=== PATIENT | female | born 1930 | race Caucasian/White ===

== ENCOUNTER 2016-09-07 11:47 | Emergency (ER) | payer MEDICARE, OTHER ==
[~2016-09-07] VITALS: Ht 162.6 cm; Wt 70.0 kg
[~2016-09-07 11:47] MED LIST: ADAL30TA5 PO; ADVA100A INH; ASCO500C PO; ASPI325T PO; CALC1TAB87 PO; GLUC500C5 PO; LATA.005%O LEFT EYE; LISI-515 PO; MIRA0.5T PO; MULT-65 PO; PRED20 PO; PRESCAP5 PO; VENTAER INH; VITA100064 PO; VITACAP7 PO; ZITH250T PO; ZOCO20TA PO
[2016-09-07 11:52] VITALS: BP 125/62; PULSE 97; RESP 18; TEMP 98.3; O2SAT 96
[2016-09-07] MEDS ORDERED: ALBUAER3 INH (12:16)
[2016-09-07] MEDS ORDERED: PRESCAP5 PO (12:16)
[2016-09-07] MEDS ORDERED: ADVA500A INH (12:16)
[2016-09-07] MEDS ORDERED: MUSINEX (12:16)
[2016-09-07 12:20] LABS: BLOOD, URINE NEG (NEG); GLUCOSE,URINE NEG (NEG); KETONE, URINE TRACE mg/dL (NEG); NITRITE,URINE NEG (NEG); PH, URINE 5.5 (5.0-8.5)
[2016-09-07 12:21] LABS: METHOD OF COLLECTION CLEAN CATCH; URINE COLOR YELLOW (YELLW/STRAW)
[2016-09-07 12:25] LABS: BACTERIA, URINE OCC /hpf; COMMENT (UR) CULTURE INDICATED; CULTURE IF INDICATED CULTURE INDICATED; RBC, URINE 0-3 /hpf (0-3); SQUAMOUS EPITHELIAL CELL URINE 0-5 /hpf (0-5)
[2016-09-07 12:29] LABS: AUTOMATED NEUTROPHIL # 8.2 TH/MM3 (1.8-7.7); BASOPHIL # 0.1 TH/MM3 (0-0.2); BASOPHIL % 1.2 % (0.0-2.0); EOSINOPHIL # 0.1 TH/MM3 (0-0.4); EOSINOPHIL % 1.2 % (0.0-4.0); HEMATOCRIT 36.4 % (35.0-46.0); LYMPH % 22.3 % (9.0-44.0); LYMPHOCYTE # 2.7 TH/MM3 (1.0-4.8); MEAN CELL VOLUME 93.8 FL (80.0-100.0); MEAN CORPUSCULAR HEMOGLOBIN 31.3 PG (27.0-34.0); MEAN CORPUSCULAR HGB CONC 33.4 % (32.0-36.0); MONO % 7.1 % (0.0-8.0); NEUT % 68.2 % (16.0-70.0); PLATELET COUNT 231 TH/MM3 (150-450); RED BLOOD COUNT 3.88 MIL/MM3 (4.00-5.30); RED CELL DISTRIBUTION WIDTH 13.4 % (11.6-17.2); WHITE BLOOD COUNT 11.9 TH/MM3 (4.0-11.0)
[2016-09-07 12:37] LABS: CHLORIDE 104 MEQ/L (98-107); POTASSIUM 3.5 MEQ/L (3.5-5.1); SODIUM (NA) 142 MEQ/L (136-145)
[2016-09-07 12:41] LABS: ANION GAP 13 MEQ/L (5-15); BICARBONATE 24.7 MEQ/L (21.0-32.0); BLOOD UREA NITROGEN 26 MG/DL (7-18)
[2016-09-07 12:44] LABS: ALT (GPT) 18 U/L (10-53); AST (GOT) 15 U/L (15-37); GLOMERULAR FILTRATION RATE 36 ML/MIN (>89)
[2016-09-07 12:45] LABS: TOTAL BILIRUBIN ADULT 0.8 MG/DL (0.2-1.0)
[2016-09-07] MEDS ORDERED: SODIUM CHLOR 0.9% 1000 ML INJ 1,000 ML IV SCH (12:45)
[2016-09-07 12:47] LABS: ALKALINE PHOSPHATASE 87 U/L (45-117)
[2016-09-07 12:48] LABS: HEMO FLAGS DIFF FINAL
[2016-09-07] MEDS ORDERED: IODIXANOL 320 MG/ML 10 ML VIAL (for Rad CT) IV ONE (13:07)
[2016-09-07 13:25] VITALS: BP 111/44; PULSE 90; RESP 16; O2SAT 96
--- NOTE | 2016-09-07 13:44 | RADHPO ---
EXAM DATE/TIME: 09/07/2016 13:01 [place] COMPARISON: No previous studies available for comparison. INDICATIONS : Right lower abdomen pain for three days. IV CONTRAST: 47 cc Visipaque (iodixanol) IV ORAL CONTRAST: No oral contrast ingested. RADIATION DOSE: 10.63 CTDIvol (mGy) MEDICAL HISTORY : Hypertension. SURGICAL HISTORY : Appendectomy. Cholecystectomy. ENCOUNTER: Initial ACUITY: 3 days PAIN SCALE: 9/10 LOCATION: Right lower quadrant TECHNIQUE: Volumetric scanning of the abdomen and pelvis was performed. Using automated exposure control and ad justment of the mA and/or kV according to patient size, radiation dose was kept as low as reasonably achievable to obtain optimal diagnostic quality images. FINDINGS: The lung bases are clear. Liver is free of focal defects. Spleen, pancreas, adrenal glands and kidn eys are unremarkable. There is marked bowel wall thickening in the ascending colon. There are no real inflammatory changes evident. Considerations include both a neoplasm and early diverticulitis. Neoplasm is the more lik mireya diagnosis. Pelvic contents are unremarkable. There is no free air. CONCLUSION: Abnormal ascending colon focally suspicious for a neoplastic process. Inflammatory process is though t to be less likely. Karl Lomas MD FACR on September 07, 2016 at 13:37 Board Certified Radiologist. This report was verified electronically.
--- NOTE | 2016-09-07 13:54 | PD ---
HPI Chief Complaint: Abdominal Pain Time Seen by Provider: 12:27 Travel History International Travel<30 days: No Contact w/Intl Traveler<30days: No Traveled to known affect area: No History of Present Illness HPI This 86-year-old female is complaining of right-sided abdominal pain. She says that last she started vomiting. She started having some right-sided abdominal pain at that time. The pain is been fairly consistent though the last 3 days. He has a history of cholecystectomy and appendectomy. She says that on July 01 she went for routine colonoscopy. He had trouble bypass scar tissue and then she apparently started coughing and the procedure had to be terminated. She does not recall having pain like this before. 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 ) Glaucoma: Yes Hypertension: Yes Neurologic: Yes (RLS) Tetanus Vaccination: Unknown ?: Not Menopausal: Yes Past Surgical History Appendectomy: Yes Cholecystectomy: Yes Tonsillectomy: Yes Other Surgery: Yes (Meniscus repair) Social History Alcohol Use: Yes (Occ.) Tobacco Use: No Substance Use: No Allergies-Medications (Allergen,Severity, Reaction): Coded Allergies: Apple (Verified Allergy, Severe, Hives, 09/07/16) RAW ONLY/CAN EAT COOKED Latex (Verified Allergy, Severe, Hives, 09/07/16) Penicillin (Verified Allergy, Severe, Hives, 09/07/16) Reported Meds & Prescriptions Reported Meds & Active Scripts Active Reported [Musinex] DAILY Proair Hfa 8.5 GM Inh (Albuterol Sulfate) 90 Mcg/Act Aer 1 Puff INH Q4H PRN 108 mcg/actuation Advair Diskus Inh (Fluticasone-Salmeterol Inh) 500-50 Mcg/Blist Aer 1 Puff INH BID Rinse mouth after use. Preservision Areds 2 (Multiple Vitamins W/ Minerals) 1 Cap 1 Cap PO DAILY Vitamin C (Ascorbic Acid) 500 Mg Cap 500 Mg PO DAILY B Complex (B-Complex Vitamins) 1 Cap 1 Cap PO DAILY Glucosamine (Glucosamine Sulfate) 500 Mg Cap 500 Mg PO BID Multi-Vitamin Daily (Multiple Vitamin) 1 Tab Tab 1 Tab PO DAILY Calcium 600 with Vitamin D (Calcium Carbonate-Cholecalciferol) 600-400 mg-Unit Tab 1 Tab PO DAILY Xalatan Opth Drops (Latanoprost) 0.005% Drops 1 Drop LEFT EYE HS Aspirin 325 Mg Tab 325 Mg PO DAILY Mirapex (Pramipexole Dihydrochloride) 0.5 Mg Tab 0.5 Mg PO DAILY Zocor (Simvastatin) 20 Mg Tab 20 Mg PO DAILY Lisinopril 20 Mg Tab 20 Mg PO DAILY Adalat CC (Nifedipine) 30 Mg Tab 30 Mg PO DAILY Review of Systems General / Constitutional: No: Fever, Chills Eyes: No: Diploplia, Blurred Vision HENT: No: Headaches, Vertigo Cardiovascular: No: Chest Pain or Discomfort, Palpitations Respiratory: No: Cough Gastrointestinal: Positive: Abdominal Pain, No: Vomiting Genitourinary: No: Urgency, Frequency Musculoskeletal: No: Myalgias, Arthralgias Hematologic/Lymphatic: No: Easy Bruising Physical Exam Narrative GENERAL: Well-developed female SKIN: Warm and dry. HEAD: Atraumatic. Normocephalic. EYES: Pupils equal and round. No scleral icterus. No injection or drainage. ENT: No nasal bleeding or discharge. Mucous membranes pink and moist. NECK: Trachea midline. No JVD. CARDIOVASCULAR: Regular rate and rhythm. No murmur appreciated. RESPIRATORY: No accessory muscle use. Clear to auscultation. Breath sounds equal bilaterally. GASTROINTESTINAL: Abdomen soft, there is an appendectomy and a cholecystectomy scar. I did pain is the right midabdomen that there is no guarding or rigidity. Bowel sounds are present MUSCULOSKELETAL: No obvious deformities. No clubbing. No cyanosis. No edema. NEUROLOGICAL: Awake and alert. No obvious cranial nerve deficits. Motor grossly within normal limits. Normal speech. PSYCHIATRIC: Appropriate mood and affect; insight and judgment normal. Data Data Last Documented VS Vital Signs Date Time Temp Pulse Resp B/P Pulse Ox O2 Delivery O2 Flow Rate FiO2 09/07/16 13:25 90 16 111/44 96 Room Air 09/07/16 11:52 98.3 Orders Urinalysis - C+S If Indicated (09/07/16 11:48) Complete Blood Count With Diff (09/07/16 12:21) Comprehensive Metabolic Panel (09/07/16 12:21) Lipase (09/07/16 12:21) Urine Culture (09/07/16 12:00) Ct Abd/Pel W Iv Contrast(Rout) (09/07/16 12:32) Sodium Chlor 0.9% 1000 Ml Inj (Ns 1000 M (09/07/16 12:45) Iodixanol 320 Inj (Rad Ct) (Visipaque 32 (09/07/16 13:07) Labs Laboratory Tests Test 09/07/16 09/07/16 12:00 12:20 Urine Collection Type CLEAN CATCH Urine Color YELLOW Urine Turbidity CLEAR Urine pH 5.5 Urine Specific [place] 1.025 Urine Protein NEG mg/dL Urine Glucose (UA) NEG mg/dL Urine Ketones TRACE mg/dL Urine Occult Blood NEG Urine Nitrite NEG Urine Bilirubin NEG Urine Leukocyte Esterase SMALL Urine RBC 0-3 /hpf Urine WBC 9-14 /hpf Urine Squamous Epithelial 0-5 /hpf Cells Urine Bacteria OCC /hpf Microscopic Urinalysis Comment CULTURE INDICATED White Blood Count 11.9 TH/MM3 Red Blood Count 3.88 MIL/MM3 Hemoglobin 12.1 GM/DL Hematocrit 36.4 % Mean Corpuscular Volume 93.8 FL Mean Corpuscular Hemoglobin 31.3 PG Mean Corpuscular Hemoglobin 33.4 % Concent Red Cell Distribution Width 13.4 % Platelet Count 231 TH/MM3 Mean Platelet Volume 7.7 FL Neutrophils (%) (Auto) 68.2 % Lymphocytes (%) (Auto) 22.3 % Monocytes (%) (Auto) 7.1 % Eosinophils (%) (Auto) 1.2 % Basophils (%) (Auto) 1.2 % Neutrophils # (Auto) 8.2 TH/MM3 Lymphocytes # (Auto) 2.7 TH/MM3 Monocytes # (Auto) 0.8 TH/MM3 Eosinophils # (Auto) 0.1 TH/MM3 Basophils # (Auto) 0.1 TH/MM3 CBC Comment DIFF FINAL Differential Comment Sodium Level 142 MEQ/L Potassium Level 3.5 MEQ/L Chloride Level 104 MEQ/L Carbon Dioxide Level 24.7 MEQ/L Anion Gap 13 MEQ/L Blood Urea Nitrogen 26 MG/DL Creatinine 1.40 MG/DL Estimat Glomerular Filtration 36 ML/MIN Rate Random Glucose 156 MG/DL Calcium Level 9.4 MG/DL Total Bilirubin 0.8 MG/DL Aspartate Amino Transf 15 U/L (AST/SGOT) Alanine Aminotransferase 18 U/L (ALT/SGPT) Alkaline Phosphatase 87 U/L Total Protein 7.6 GM/DL Albumin 3.4 GM/DL Lipase 160 U/L [facility] Medical Decision Making Medical Screen Exam Complete: Yes Emergency Medical Condition: Yes Medical Record Reviewed: Yes Differential Diagnosis Differential includes diverticulitis, bowel obstruction, Narrative Course Lab work is similar to previous values. A CT scan of the abdomen and pelvis has been ordered. The CT is read as showing abnormal ascending colon suspicious for neoplastic process or early diverticulitis. Patient has a sick at home and does not want to be admitted. I have discussed the case with Dr. Mac who is covering for Dr. Qureshi. He recommends Levaquin and Flagyl and Bentyl for pain. She is to follow-up with Dr. Qureshi Diagnosis Primary Impression: Diverticulitis large intestine Qualified Code: K57.32 - Diverticulitis of large intestine without perforation or abscess without bleeding Additional Impression: possible colon canceR Referrals: Vivek Qureshi MD Scripts Dicyclomine (Bentyl)20 Mg Tab20 Mg PO TID #20 TAB Ref 0 Prov:Chencho Reed MD 09/07/16 Metronidazole (Flagyl)500 Mg Iki128 Mg PO TID 7 Days Ref 0 Prov:Chencho Reed MD 09/07/16 Levofloxacin (Levaquin)500 Mg Sci753 Mg PO DAILY 7 Days Ref 0 Prov:Chencho Reed MD 09/07/16 Disposition: 01 DISCHARGE HOME Condition: Stable Chencho Reed MD Sep 07, 2016 13:54
[2016-09-07] MEDS ORDERED: BENT20TA PO (14:07)
[2016-09-07] MEDS ORDERED: LEVA500T PO (14:07)
[2016-09-07] MEDS ORDERED: METR-1 PO (14:07)
[2016-09-07] MEDS ORDERED: LEVOFLOXACIN 500 MG TAB PO ONE (14:15)
[2016-09-08] MEDS ORDERED: GUAI1TAB15 PO (09:49)
== END 2016-09-07 14:42 | disposition home or self-care (01) ==
LOC: PHED 11:47
DX: K57.32 Diverticulitis of large intestine without perforation or abscess without bleeding (principal); I10 Essential (primary) hypertension
CPT/HCPCS: 74177; 80053; 81001; 83690; 85025; 87086; 96360; 96361; 99284; J7030; Q9967

== ENCOUNTER → 2016-10-21 | Outpatient (CLI) | payer MEDICARE, OTHER ==
[~2016-10-21] MED LIST changes: -ADVA100A INH; +ADVA500A INH; +ALBUAER3 INH; +BENT20TA PO; +GUAI1TAB15 PO; +LEVA500T PO; +METR-1 PO; -PRED20 PO; -VENTAER INH; -VITA100064 PO; -ZITH250T PO
[2016-10-23 03:52] LABS: IGA SERUM 276 mg/dL (81-463); TISSUE TRANSGLUTAMINASE AB IGG ND U/mL (())
[2016-10-23 13:56] LABS: ENDOMYSIAL AB TITER ND (<1:5); TISSUE TRANSGLUTAMINASE AB LESS THAN 1 U/mL (())
== END ==
LOC: PLAB 10:45
PROVIDERS: ATTEND Internal Medicine Gastroenterology
DX: R93.3 Abnormal findings on diagnostic imaging of other parts of digestive tract (principal); R19.7 Diarrhea, unspecified; R14.3 Flatulence; R10.9 Unspecified abdominal pain; Z12.11 Encounter for screening for malignant neoplasm of colon
CPT/HCPCS: 36415; 82784; 83516

== ENCOUNTER → 2016-11-17 | Outpatient (CLI) | payer MEDICARE, OTHER ==
[2016-11-17 10:31] LABS: ALKALINE PHOSPHATASE 99 U/L (45-117); ALT (GPT) 25 U/L (10-53); ANION GAP 7 MEQ/L (5-15); AST (GOT) 18 U/L (15-37); BICARBONATE 29.3 MEQ/L (21.0-32.0); BLOOD UREA NITROGEN 14 MG/DL (7-18); CHLORIDE 105 MEQ/L (98-107); GLOMERULAR FILTRATION RATE 54 ML/MIN (>89); GLUCOSE,FASTING 105 MG/DL (74-99); HDL CHOLESTEROL 53.1 MG/DL (40.0-60.0); LDL CHOLESTEROL 74 MG/DL (0-99); POTASSIUM 4.8 MEQ/L (3.5-5.1); SODIUM (NA) 141 MEQ/L (136-145); TOTAL BILIRUBIN ADULT 0.7 MG/DL (0.2-1.0)
[2016-11-17 10:34] LABS: HEMOGLOBIN A1a 1.4 %; HEMOGLOBIN A1b 1.7 %; HEMOGLOBIN Ao 85.5 %; HEMOGLOBIN LA1C 1.9 %; HEMOGLOBIN P3 3.7 %
[2016-11-17 10:49] LABS: CREATINE KINASE 65 U/L (26-192)
== END ==
LOC: PLAB 06:47
DX: E78.00 Pure hypercholesterolemia, unspecified (principal); R73.9 Hyperglycemia, unspecified; Z79.899 Other long term (current) drug therapy
CPT/HCPCS: 36415; 80053; 80061; 82550; 83036

== ENCOUNTER → 2017-02-02 | Outpatient (CLI) | payer MEDICARE, OTHER | LOC: PLAB 11:35 | DX: R53.83 Other fatigue (principal); L65.9 Nonscarring hair loss, unspecified | CPT/HCPCS: 36415; 84443 ==

== ENCOUNTER → 2017-02-13 | Outpatient (CLI) | payer MEDICARE, OTHER ==
[2017-02-13 09:18] LABS: AUTOMATED NEUTROPHIL # 3.8 TH/MM3 (1.8-7.7); BASOPHIL # 0.1 TH/MM3 (0-0.2); EOSINOPHIL # 0.6 TH/MM3 (0-0.4); EOSINOPHIL % 8.7 % (0.0-4.0); HEMATOCRIT 36.5 % (35.0-46.0); HEMO FLAGS DIFF FINAL; LYMPHOCYTE # 1.8 TH/MM3 (1.0-4.8); MEAN CELL VOLUME 93.8 FL (80.0-100.0); MEAN CORPUSCULAR HEMOGLOBIN 31.6 PG (27.0-34.0); MEAN CORPUSCULAR HGB CONC 33.7 % (32.0-36.0); MONO % 12.1 % (0.0-8.0); NEUT % 53.2 % (16.0-70.0); PLATELET COUNT 191 TH/MM3 (150-450); RED BLOOD COUNT 3.89 MIL/MM3 (4.00-5.30); RED CELL DISTRIBUTION WIDTH 13.2 % (11.6-17.2); WHITE BLOOD COUNT 7.1 TH/MM3 (4.0-11.0)
[2017-02-13 09:37] LABS: ANION GAP 8 MEQ/L (5-15); AST (GOT) 18 U/L (15-37); BICARBONATE 27.1 MEQ/L (21.0-32.0); BLOOD UREA NITROGEN 13 MG/DL (7-18); CHLORIDE 103 MEQ/L (98-107); GLOMERULAR FILTRATION RATE 57 ML/MIN (>89); POTASSIUM 4.2 MEQ/L (3.5-5.1); SODIUM (NA) 138 MEQ/L (136-145)
[2017-02-13 09:38] LABS: GLUCOSE,FASTING 101 MG/DL (74-99)
[2017-02-13 09:44] LABS: ALKALINE PHOSPHATASE 96 U/L (45-117); ALT (GPT) 24 U/L (10-53); FERRITIN 119 NG/ML (8-252); TOTAL BILIRUBIN ADULT 0.5 MG/DL (0.2-1.0); TRANSFERRIN IRON PROFILE 202 MG/DL (200-360)
== END ==
LOC: PLAB 06:38
PROVIDERS: ATTEND Dermatology MOHS-Micrographic Surgery
DX: L30.9 Dermatitis, unspecified (principal); L65.0 Telogen effluvium; Z79.899 Other long term (current) drug therapy
CPT/HCPCS: 36415; 80053; 82626; 82728; 83540; 83550; 84403; 85025

== ENCOUNTER → 2017-05-21 | Outpatient (CLI) | payer MEDICARE, OTHER ==
[~2017-05-21] MED LIST changes: +GLUC750C PO; +IPRA0.06 EACH NARE; +LISI10TA3 PO; +OCUVTAB4 PO; +RANI150C PO; +VENTAER INH
[2017-05-21 13:01] LABS: HEMATOCRIT 37.8 % (35.0-46.0); MEAN CELL VOLUME 97.3 FL (80.0-100.0); MEAN CORPUSCULAR HGB CONC 32.9 % (32.0-36.0); PLATELET COUNT 186 TH/MM3 (150-450); RED BLOOD COUNT 3.88 MIL/MM3 (4.00-5.30); RED CELL DISTRIBUTION WIDTH 13.5 % (11.6-17.2); REVIEW FLAG FINAL
[2017-05-21 13:20] LABS: ALT (GPT) 21 U/L (10-53); ANION GAP 6 MEQ/L (5-15); AST (GOT) 14 U/L (15-37); BICARBONATE 28.2 MEQ/L (21.0-32.0); BLOOD UREA NITROGEN 17 MG/DL (7-18); CHLORIDE 106 MEQ/L (98-107); GLOMERULAR FILTRATION RATE 55 ML/MIN (>89); GLUCOSE,FASTING 106 MG/DL (74-99); SODIUM (NA) 140 MEQ/L (136-145)
[2017-05-21 13:23] LABS: ALKALINE PHOSPHATASE 95 U/L (45-117); CREATINE KINASE 87 U/L (26-192); HDL CHOLESTEROL 70.4 MG/DL (40.0-60.0); LDL CHOLESTEROL 61 MG/DL (0-99); TOTAL BILIRUBIN ADULT 0.8 MG/DL (0.2-1.0)
[2017-05-21 18:01] LABS: HEMOGLOBIN A1a 0.8 %; HEMOGLOBIN A1b 1.7 %; HEMOGLOBIN Ao 84.9 %; HEMOGLOBIN LA1C 2.1 %; HEMOGLOBIN P3 3.9 %
== END ==
LOC: PLAB 09:41
DX: E78.00 Pure hypercholesterolemia, unspecified (principal); R73.9 Hyperglycemia, unspecified; Z79.899 Other long term (current) drug therapy
CPT/HCPCS: 36415; 80053; 80061; 82550; 83036; 85027

== ENCOUNTER → 2017-05-26 | Outpatient (CLI) | payer MEDICARE, OTHER ==
--- NOTE | 2017-06-05 09:57 | RSPPFT ---
DATE OF PROCEDURE: 05/26/16 COMMENTS: VOLUMES DYNAMIC: FVC and FEV1 moderately reduced. STATIC: TLC mildly reduced; FRC and RV normal. FLOWS: FEV1% normal; FEF 25-75 mildly reduced. DIFFUSION: Moderately reduced. FLOW VOLUME LOOP: Very erratic but appears restrictive. 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 There is no improvement post-bronchodilator. There is a moderate reduction in diffusion although patient did have difficulty with this study.
== END ==
LOC: HRSP 11:02
PROVIDERS: ATTEND Internal Medicine
DX: J45.909 Unspecified asthma, uncomplicated (principal); R06.02 Shortness of breath
CPT/HCPCS: 94060; 94726; 94729

== ENCOUNTER 2017-06-15 11:21 | Day surgery (SDC) | payer MEDICARE, OTHER ==
[~2017-06-15] VITALS: Ht 162.6 cm; Wt 66.0 kg
[~2017-06-15 11:21] MED LIST changes: +ASPI-183 PO; -ASPI325T PO; -GLUC750C PO; -IPRA0.06 EACH NARE; -LISI10TA3 PO; -OCUVTAB4 PO; -RANI150C PO; -VENTAER INH
[2017-06-15] MEDS ORDERED: IOHEXOL 350 MG/ML 50 ML BTL (for Cath Lab) OTHER ONE (11:22)
[2017-06-15] MEDS ORDERED: ASPIRIN 81 MG CHEW TAB PO SCH (11:45)
[2017-06-15] MEDS ORDERED: NS 1000P @30 MLS/HR (KVO) IV SCH (12:00)
[2017-06-15] MEDS ORDERED: OCUVTAB4 PO (12:18)
[2017-06-15] MEDS ORDERED: VENTAER INH (12:18)
[2017-06-15] MEDS ORDERED: RANI150C PO (12:18)
[2017-06-15 12:21] VITALS: BP 155/76; PULSE 92; RESP 18; TEMP 98.1; O2SAT 97
[2017-06-15 12:48] LABS: POTASSIUM 4.4 MEQ/L (3.5-5.1)
[2017-06-15 13:09] LABS: AUTOMATED NEUTROPHIL # 4.4 TH/MM3 (1.8-7.7); BASOPHIL % 0.7 % (0.0-2.0); EOSINOPHIL # 0.2 TH/MM3 (0-0.4); EOSINOPHIL % 2.7 % (0.0-4.0); HEMATOCRIT 38.3 % (35.0-46.0); HEMO FLAGS DIFF FINAL; LYMPHOCYTE # 1.8 TH/MM3 (1.0-4.8); MEAN CELL VOLUME 96.2 FL (80.0-100.0); MEAN CORPUSCULAR HEMOGLOBIN 31.7 PG (27.0-34.0); MONO % 10.1 % (0.0-8.0); NEUT % 61.5 % (16.0-70.0); PLATELET COUNT 181 TH/MM3 (150-450); RED BLOOD COUNT 3.99 MIL/MM3 (4.00-5.30); RED CELL DISTRIBUTION WIDTH 13.4 % (11.6-17.2); WHITE BLOOD COUNT 7.2 TH/MM3 (4.0-11.0)
[2017-06-15 13:19] LABS: PROTHROMBIN TIME - PATIENT 10.5 SEC (9.8-11.6)
[2017-06-15] MEDS ORDERED: HEPARIN-NS/PF INJ 1,000 ML ONE (14:03)
[2017-06-15] MEDS ORDERED: MIDAZOLAM HCL 2 MG/2 ML VIAL ONE (14:03)
[2017-06-15] MEDS ORDERED: MISC INFORMATION XX ONE (14:45)
[2017-06-15] MEDS ORDERED: SODIUM CHLORIDE 0.9% FLUSH 10 ML FLUSH IV FLUSH PRN (14:45)
--- NOTE | 2017-06-15 14:47 | CATHPROC ---
CO[facility] HIS Report Study Information Study Number Admission Scheduled Start Study Start [id number] Jun 15 2017 11:21AM 06/15/2017 Jun 15 2017 1:44PM [place] [facility]iac Catheterization Admit Source Facility Department Other [facility] Physician and Clinical Staff Initial [place]ino[place] Part Time Receptionist Alek RN, Naty Cardenas RCIS TECH2 Scrub Kailash Pastor RCIS(BS) Procedures Performed Procedure Location (Site) Vessel Name Coronary Angiograms LCA Left Coronary Coronary Angiograms RCA Right Coronary LV Gram-hand inj. LV LV Ventricle Equipment Time Commercial Pest Control Technician Description Size Mfg Part Number Used/Scraped CATHETER, FR5 SWAN JENNY 13:45 [employer] FR 5 [id number] *[id number] Used MONITOR TRANSDUCER, TRUWAVE [id number] 13:45 RINCON KNAPP * Used W/STOCKCOCK *[id number] *[id number] *[id number] 13:45 MEDLINE IND[employer]ES PACK, CCL CUSTOM * Used *[id number] 13:45 [employer] PACER PEN, SKIN DUAL W/ RULER * Used *[id number] 13:45 [employer] MEDICAL SHEATH, FR5.5 PRELUDE 11CM FR 5.5 Used 038ACT# [id number] 13:45 [employer] MEDICAL WIRE, 3MMJ .035 180CM 180CM Used *[id number] 13:45 NAMIC MANIFOLD, 4 PORT * Used *[id number] 13:45 NYCOMED OMNIPAQUE, 350 MG, 150ML 150ML [id number] Used [id number] 13:45 PORTER MEDICAL BLANKET,WARM AIR CCL * Used *[id number] 13:45 TERUMO MEDICAL SHEATH, FR4 TERUMO (10CM) FR 4 Used *[id number] History: Current Medications Medication Dosage/Unit Route Frequency Last Date/Time Taken LISINOPRIL Zocor ASA VITAMIN D Albuterol History: Allergies Allergy Reaction apple Hives latex Hives Penicillin Hives penicillin G Hives History: Risk Factors Hypertension Dyslipidemia Previous RI Previous Heart Failure Yes No No Yes Prior Valve Prior PCI Prior CABG Surgery No No No Cerebrovascular Peripheral Artery Chronic Lung On Dialysis Diabetes Disease Disease Disease No No No No Yes History: Symptoms/Diagnosis Selection Items SOB History: Stress Tests Stress or Imaging Studies Performed Yes History: Other Current Smoker No Labs Hgb (g/dl) Hct (%) RBC (MIL/MM3) WBC (l/cumm) Platelets (thousands) 11.60-17.00 35.00-51.00 4.00-5.90 4.00-11.00 150.00-450.00 12.6 38.3 3.9 7.2 181 Glucose (mg/dl) BUN (mg/dl) Creatinine (mg/dl) BUN:Creatinine (1:x) 74.00-106.00 7.00-18.00 0.50-1.30 10.00-20.00 112 14 0.8 17.5 Na (meq/l) K (meq/l) Cl (meq/l) CO2 (mmol/L) Ca (mg/dl) 136.00-145.00 3.50-5.10 98.00-107.00 21.00-32.00 8.50-10.10 138 4.4 104 26 9.6 PT (sec) INR (PTT:PT) 9.80-11.60 0.90-1.10 10.5 1 CPK-MB (ng/ML) 0.50-3.60 Not Drawn Medication Medication Total Dose (Bolus/Oral) Medication Total Dosage/Unit 1% XYLOCAINE 20 mL VERSED 1 mg Medications (Bolus/Oral) Medication Time Given Dosage/Unit Administered By Reason VERSED 06/15/2017 2:23:42 PM 1 mg Bernard Gaston RN 1 mg VERSED given in lab by Bernard Gaston RN in Right Antecubital via Peripheral IV. Ordered by El Martin. 1% XYLOCAINE 06/15/2017 2:24:54 PM 20 mL El Ruano 20 mL 1% XYLOCAINE given in lab by El Ruano in Right Groin via Subcutaneous. Ordered by El Guzman. Medication (Drip) Medication Time Given Dosage/Unit Concentration/Unit Diluent (ml) Solutio n IV Solutions 06/15/2017 1:57:25 PM 0 mL (IV) 500 NaCl .9 Patient arrived on IV Solutions in Right Antecubital via Peripheral IV. Pump/Drip Flow = 20 ml/hr usi ng NaCl .9. Initial Case Assessment Cardiovascular HR Rhythm NIBP Chest Pain 95 sr 151/78 0 Circulatory - Right Pulses Dorsalis Pedis Femoral 2 3 Scale (0,1,2,3,4,d) Circulatory - Left Pulses Dorsalis Pedis Femoral 2 3 Scale (0,1,2,3,4,d) Neurological State Oriented to time-place- Alert Moves all extremities person Respiration - General Respiration Rate SpO2 (%) (B/min) 10 100 Final Case Assessment Cardiovascular HR Rhythm NIBP Chest Pain 87 sr 129/71 0 Circulatory - Right Pulses Dorsalis Pedis Femoral 2 3 Scale (0,1,2,3,4,d) Circulatory - Left Pulses Dorsalis Pedis Femoral 2 3 Scale (0,1,2,3,4,d) Neurological State Oriented to time-place- Alert Moves all extremities person Respiration - General Respiration Rate SpO2 (%) (B/min) 12 98 Chronological Log Time Study Chronological Log 13:56:43 Patient arrived via Bed. 13:56:44 Patient Name, D.O.B, / Armband Verified By R.N. 13:56:45 Consent signed by the physician and the patient and verified by the [facility] staff. 13:56:46 Pre-op and post- op instructions given; patient acknowledges understanding of instructions. 13:56:47 Verbal Stimulation=2 Physical Stimulation=2 Airway=2 Respiration=2 TOTAL=8. (0=absent, 1=li mited, 2=present) 13:57:06 Presedation assessment performed by [facility] RN. 13:57:08 Patient has been NPO for More than 6Hrs. 13:57:09 Skin Breakdown-wound on forehead noted. 13:57:11 Michael Prominences Protected 13:57:14 A # 20 IV was noted in the Antecubital (right). Grade = patent 13:57:25 Patient arrived on IV Solutions in Right Antecubital via Peripheral IV. Pump/Drip Flow = 20 ml/hr using NaCl .9. Vitals capture started with the following parameters, Patient=Adult, Interval=5 min, Initial Pr kmjmvs=462 mmHg, 14:03:19 Deflation Rate=5 mmHg, Cuff placed on Right Arm 14:04:29 HR=90 bpm, PFBH=698/71 mmhg, SpO2=99.0 %, Resp=19 B/min, Pain=0, Radha=10, Lowe=2 14:08:57 HR=86 bpm, AQGO=703/78 mmhg, SkM3=941.0 %, Resp=16 B/min, Pain=0, Radha=10, Lowe=2 14:09:51 History and physical on the chart or being dictated. Assessment: Initial Case, HR=95 BPM, Rhythm=sr, GFEU=411/78 mmhg, Chest Pain=0 Right Pulses: Vitor Ped=2, Femoral=3 14:09:52 Left Pulses: Vitor Ped=2, Femoral=3 Neurological: State=Alert, Ox3, [place] Respiration: Resp=10 B/min, KhH2=480 % 14:10:33 Bilateral groins prepped with 2% chlorhexidine, and draped after a 3 minute waiting time. 14:11:22 MD paged 14:11:26 Reference ECG taken 14:13:48 Pressure channel 1 zeroed. 14:14:00 HR=91 bpm, EHCA=257/73 mmhg, LcA4=330.0 %, Resp=11 B/min 14:19:30 HR=88 bpm, VDOX=394/63 mmhg, VwF2=650.0 %, Resp=11 B/min, Pain=0, Radha=10, Lowe=2 14:21:34 MD arrived. 14:23:42 1 mg VERSED given in lab by Bernard Gaston RN in Right Antecubital via Peripheral IV. Ordered by El Ruano. 14:23:54 HR=91 bpm, LOVG=326/79 mmhg, XsF9=609.0 %, Resp=13 B/min, Pain=0, Radha=10, Lowe=2 Time Out. Correct patient, correct procedure, correct physician, power injector loaded not load ed with contrast or used 14:24:05 with surgical team present. Time Out Concurred by MD and individual staff in procedure. 14:24:53 Case Start 20 mL 1% XYLOCAINE given in lab by El Ruano in Right Groin via Subcutaneous. Ordered by Alden, 14:24:54 El. 14:25:32 Access site was Right Femoral Artery. 14:25:45 A SHEATH, FR4 TERUMO (10CM) FR 4 was advanced into the Fem Art (right) using the Percutaneo us technique. 14:26:29 Saturation: Site=FA (Femoral Artery) , O2=96.5 %, Hgb=12.6 gm/dl, Condition=Condition 1. Us ed in calculation. 14:28:59 HR=94 bpm, PTGT=146/69 mmhg, SpO2=97.0 %, Resp=14 B/min 14:29:06 A catheter was advanced over a wire. OMNIPAQUE, 350 MG, 150ML 150ML was used for injections . 14:29:24 The LV was manually injected with 10 cc's and visualized. OMNIPAQUE, 350 MG, 150ML 150ML us ed. Recorded Pressure: LV, HR=85, Condition=Condition 1 14:29:26 (Left Ventricle) LV 171/1/12 Recorded Pressure: LV, Ao, HR=99, Condition=Condition 1 14:29:38 (Left Ventricle) LV 166/1/8, (Aorta) Ao 160/68/110 14:30:41 The RCA was injected and visualized at various angles. OMNIPAQUE, 350 MG, 150ML 150ML use d. 14:31:20 Catheter was removed A JL 4.0 INFINITI CATHETER FR 4 was advanced over a wire. OMNIPAQUE, 350 MG, 150ML 150ML was u sed for 14:31:22 injections. 14:31:30 The LCA was injected and visualized at various angles. OMNIPAQUE, 350 MG, 150ML 150ML use d. 14:32:24 Catheter was removed 14:34:02 HR=91 bpm, SNMK=237/77 mmhg, SpO2=96.0 %, Resp=16 B/min, Pain=0, Radha=10, Lowe=2 14:34:18 Case End 14:34:27 Sheath removed; pressure applied to access site. 14:38:59 HR=92 bpm, EACU=386/75 mmhg, SpO2=96.0 %, Resp=15 B/min 14:43:56 HR=87 bpm, PIZL=406/71 mmhg, SpO2=98.0 %, Resp=12 B/min 14:44:37 Hemostasis obtained 14:44:50 Sterile dressing applied to site 14:44:55 No case complications noted. 14:44:58 Cine recording checked. 14:45:00 Bedside Report will be given. 14:45:37 Patient moved to bed Assessment: Final Case, HR=87 BPM, Rhythm=sr, UEXP=488/71 mmhg, Chest Pain=0 Right Pulses: Vitor Ped=2, Femoral=3 14:45:47 Left Pulses: Vitor Ped=2, Femoral=3 Neurological: State=Alert, Ox3, [place] Respiration: Resp=12 B/min, SpO2=98 % 14:46:43 Patient transported to DOCU End Study - Contrast Media Used In Study Contrast Total Opened (mL) Total Used (mL) Total Wasted (mL) Omnipaque 30 30 0 End Study - Maximum Contrast Load Max Contrast Load (mL) 412.5 End Study - Radiation Exposure Fluoro Time (minutes) 0.8 End Study - Sheaths Sheaths Pulled By Sheath Hold Time (min) Kailash Pastor End Study - Patient Disposition Complications Transferred To Telemetry Bed
--- NOTE | 2017-06-15 15:26 | MA ---
cc: TREVON KO M.D. DATE: 06/15/2017 PROCEDURE 1. Left heart catheterization. 2. Left ventriculography. 3. Coronary arteriography. INDICATIONS Coronary artery disease, worsening severe dyspnea despite the use of inhalers, history of peripheral vascular disease, carotid stenosis, CHF, anginal equivalent, unstable angina, [place] Cardiovascular Society class 4 angina. DETAILS OF PROCEDURE The patient was brought to the cardiac catheter laboratory and prepped and draped in the usual sterile fashion. 10 cc of 1% lidocaine was used to locally anesthetize the right common femoral artery. A 4 Prydeinig sheath was successfully placed in the right common femoral artery. 4 Prydeinig JR4 and JL4 catheters were used to perform left and right coronary arteriography, left ventriculography. FINDINGS LV pressures 160/1-08. Ejection fraction 65%. The right coronary is dominant. There is a long 40-50% mid stenosis in the right coronary artery. The distal vessel has a 30% stenosis. The left main coronary artery has no significant disease angiographically. The LAD is large and transapical with no significant disease angiographically. The first diagonal artery is a medium-sized vessel with no significant disease angiographically. The second diagonal artery is a small vessel with an ostial 40-50% stenosis. The left circumflex vessel has no significant disease angiographically. The first obtuse marginal vessel has an ostial proximal 50-60% stenosis. CONCLUSIONS 1. Angiographically moderate three-vessel coronary artery disease in a right dominant system as detailed above. 2. Normal LV systolic function, ejection fraction 60%. 3. LV pressure is 160/1-88. 4. Findings consistent with noncardiac etiology for the patient's dyspnea. RECOMMENDATIONS Recommend medical management of coronary artery disease and cardiac risk factor modification. MD NIKOLAS Limon/RAO /2:38 PM /3:16 PM
[2017-06-15] MEDS ORDERED: IPRA0.06 EACH NARE (19:58)
[2017-06-15] MEDS ORDERED: LISI10TA3 PO (19:58)
[2017-06-15] MEDS ORDERED: GLUC750C PO (19:58)
[2017-06-15] MEDS ORDERED: SODIUM CHLORIDE 0.9% FLUSH 10 ML FLUSH IV FLUSH SCH (21:00)
--- NOTE | 2017-06-16 19:35 | EKG ---
Date Performed: 06/15/2017 Time Performed: 12:34:20 PTAGE: 87 years EKG: Sinus rhythm . Nonspecific ST T change Since previous tracing 07/12/2016, there is some loss of R-forces in V2 but this maybe due to lead placement, otherwise no significant change. Borderline ECG PREVIOUS TRACING : 07/12/2016 17.26 DOCTOR: Glenroy Kinsey Interpretating Date/Time 06/16/2017 19:35:15
== END 2017-06-15 16:34 | disposition home or self-care (01) ==
LOC: HDOC 11:21 → HDIC 11:22 → HDOC 16:34
PROVIDERS: ATTEND Internal Medicine Interventional Cardiology
DX: I25.110 Atherosclerotic heart disease of native coronary artery with unstable angina pectoris (principal); I10 Essential (primary) hypertension; J45.909 Unspecified asthma, uncomplicated
CPT/HCPCS: 70450; 71010; 80053; 81001; 82550; 83880; 84484; 85025; 85610; 85730; 93005; 93458; 99285; C1769; C1893; G0378; J1644; J2250; 80048; 93306; 93880; G8987-GP; G8988-GP; Q9967

== ENCOUNTER 2017-06-15 19:45 | Observation (INO) | payer MEDICARE, OTHER ==
[~2017-06-15] VITALS: Ht 162.6 cm; Wt 113.0 kg
[~2017-06-15 19:45] MED LIST changes: -ASPI-183 PO; +ASPI325T PO; +OCUVTAB4 PO; +RANI150C PO; +VENTAER INH
[2017-06-15 19:50] VITALS: BP 138/61; PULSE 81; RESP 16; TEMP 98.3; O2SAT 97
[2017-06-15] MEDS ORDERED: LISI10TA3 PO (19:58)
[2017-06-15] MEDS ORDERED: IPRA0.06 EACH NARE (19:58)
[2017-06-15] MEDS ORDERED: GLUC750C PO (19:58)
[2017-06-15] MEDS ORDERED: SODIUM CHLORIDE 0.9% FLUSH 10 ML FLUSH IVF PRN (20:00)
[2017-06-15 20:01] VITALS: O2SAT 96
--- NOTE | 2017-06-15 20:05 | PD ---
HPI Chief Complaint: Syncope/Near-Syncope Time Seen by Provider: 19:54 Travel History International Travel<30 days: No Contact w/Intl Traveler<30days: No Traveled to known affect area: No History of Present Illness HPI shortly after dinner, patient felt lightheaded and dizzy and does not recall anything else until her son told her that she passed out. son describes patient rolled her eyes back and was starting to slump backwards on her chair and son caught her , she did not fall to ground or hit any part of her body, loc lasted for about 15sec or so, no tonic clonic activity. per son pt had cath yesterday. 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: Yes (left) Hiatal Hernia: Yes Hypertension: Yes Neurologic: Yes (RLS) Respiratory: Yes (exertional asthma) Menopausal: Yes Past Surgical History Appendectomy: Yes Cholecystectomy: Yes Tonsillectomy: Yes Other Surgery: Yes (Meniscus repair) Social History Alcohol Use: Yes (Occ.) Tobacco Use: No Substance Use: No Allergies-Medications (Allergen,Severity, Reaction): Coded Allergies: apple (Unverified Allergy, Severe, Hives, 06/15/17) RAW ONLY/CAN EAT COOKED latex (Unverified Allergy, Severe, Hives, 06/15/17) penicillin G (Unverified Allergy, Severe, Hives, 06/15/17) Reported Meds & Prescriptions Reported Meds & Active Scripts Active Reported Glucosamine (Glucosamine Sulfate) 750 Mg Cap 750 Mg PO BID Ipratropium Nasal 0.06% [place] 2 [place] EACH NARE BID Lisinopril 10 Mg Tab 10 Mg PO DAILY Ranitidine (Ranitidine HCl) 150 Mg Cap 150 Mg PO DAILY Ventolin Hfa 18 GM Inh (Albuterol Sulfate) 90 Mcg/Act Aer 1 Puff INH Q4H PRN Preservision Areds (Multiple Vitamins W/ Minerals) 1 Tab 1 Tab PO DAILY Advair Diskus Inh (Fluticasone-Salmeterol Inh) 500-50 Mcg/Blist Aer 1 Puff INH BID Rinse mouth after use. B Complex (B-Complex Vitamins) 1 Cap 1 Cap PO DAILY Multi-Vitamin Daily (Multiple Vitamin) 1 Tab Tab 1 Tab PO DAILY Calcium 600 with Vitamin D (Calcium Carbonate-Cholecalciferol) 600-400 mg-Unit Tab 1 Tab PO DAILY Xalatan Opth Drops (Latanoprost) 0.005% Drops 1 Drop LEFT EYE HS Aspirin 325 Mg Tab 325 Mg PO DAILY Mirapex (Pramipexole Dihydrochloride) 0.5 Mg Tab 0.5 Mg PO DAILY Zocor (Simvastatin) 20 Mg Tab 20 Mg PO DAILY Adalat CC (Nifedipine) 30 Mg Tab 30 Mg PO DAILY Review of Systems Except as stated in HPI: all other systems reviewed are Neg General / Constitutional: No: Fever Eyes: No: Visual changes HENT: Positive: Lightheadedness Cardiovascular: No: Chest Pain or Discomfort Respiratory: No: Shortness of Breath Gastrointestinal: No: Abdominal Pain Genitourinary: No: Dysuria Musculoskeletal: No: Pain Skin: No Rash Neurologic: No: Weakness Psychiatric: No: Depression Endocrine: No: Polydipsia Hematologic/Lymphatic: No: Easy Bruising Physical Exam Narrative GENERAL: SKIN: Warm and dry. HEAD: Atraumatic. Normocephalic. EYES: Pupils equal and round. No scleral icterus. No injection or drainage. ENT: No nasal bleeding or discharge. Mucous membranes pink and moist. NECK: Trachea midline. No JVD. CARDIOVASCULAR: Regular rate and rhythm. RESPIRATORY: No accessory muscle use. Clear to auscultation. Breath sounds equal bilaterally. GASTROINTESTINAL: Abdomen soft, non-tender, nondistended. MUSCULOSKELETAL: Extremities without clubbing, cyanosis, or edema. No obvious deformities. NEUROLOGICAL: Awake and alert. No obvious cranial nerve deficits. Motor grossly within normal limits. Five out of 5 muscle strength in the arms and legs. Normal speech. PSYCHIATRIC: Appropriate mood and affect; insight and judgment normal. Data Data Last Documented VS Orders Orders Electrocardiogram (06/15/17 19:54) Complete Blood Count With Diff (06/15/17 19:54) Comprehensive Metabolic Panel (06/15/17 19:54) B-Type Natriuretic Peptide (06/15/17 19:54) Ckmb (Isoenzyme) Profile (06/15/17 19:54) Troponin I (06/15/17 19:54) Act Partial Throm Time (Ptt) (06/15/17 19:54) Prothrombin Time / Inr (Pt) (06/15/17 19:54) Urinalysis - C+S If Indicated (06/15/17 19:54) Chest, Single Ap (06/15/17 19:54) Ct Brain W/O Iv Contrast(Rout) (06/15/17 19:54) Ecg Monitoring (06/15/17 19:54) Iv Access Insert/Monitor (06/15/17 19:54) Oximetry (06/15/17 19:54) Sodium Chloride 0.9% Flush (Ns Flush) (06/15/17 20:00) Orthostatic Vital Signs (06/15/17 19:54) Place In Observation (06/15/17 ) Vital Signs (Adult) Q4H (06/15/17 23:18) Neuro Checks Q4H (06/15/17 23:18) Activity Oob With Assistance (06/15/17 23:18) Blue Prints Trimmer / Telemetry .CONTINUOUS (06/15/17 23:18) Diet Heart Healthy (06/16/17 Breakfast) Sodium Chloride 0.9% Flush (Ns Flush) (06/15/17 23:30) Sodium Chloride 0.9% Flush (Ns Flush) (06/16/17 09:00) Basic Metabolic Panel (Bmp) (06/16/17 06:00) Complete Blood Count With Diff (06/16/17 06:00) Pt Request For Service (06/15/17 23:18) Case Management Consult (06/15/17 23:18) Naloxone Inj (Narcan Inj) (06/15/17 23:30) Admit Order (Ed Use Only) (06/15/17 23:18) Blue Prints Trimmer / Telemetry HEMANT.Q8H (06/15/17 23:18) Activity Bed Rest (06/15/17 23:18) Notify Dr: Other (06/15/17 23:18) Us Carotid Arteries Comp Bilat (06/16/17 ) Echo 2d Comp With Doppler (06/16/17 ) Labs Laboratory Tests Test 06/15/17 19:50 06/15/17 22:13 White Blood Count 10.8 TH/MM3 Red Blood Count 4.07 MIL/MM3 Hemoglobin 13.0 GM/DL Hematocrit 39.1 % Mean Corpuscular Volume 96.1 FL Mean Corpuscular Hemoglobin 31.9 PG Mean Corpuscular Hemoglobin Concent 33.2 % Red Cell Distribution Width 13.3 % Platelet Count 184 TH/MM3 Mean Platelet Volume 7.6 FL Neutrophils (%) (Auto) 69.8 % Lymphocytes (%) (Auto) 18.5 % Monocytes (%) (Auto) 9.2 % Eosinophils (%) (Auto) 1.9 % Basophils (%) (Auto) 0.6 % Neutrophils # (Auto) 7.5 TH/MM3 Lymphocytes # (Auto) 2.0 TH/MM3 Monocytes # (Auto) 1.0 TH/MM3 Eosinophils # (Auto) 0.2 TH/MM3 Basophils # (Auto) 0.1 TH/MM3 CBC Comment AUTO DIFF Differential Comment AUTO DIFF CONFIRMED Platelet Estimate NORMAL Platelet Morphology Comment NORMAL Prothrombin Time 10.6 SEC Prothromb Time International Ratio 1.0 RATIO Activated Partial Thromboplast Time 23.4 SEC Blood Urea Nitrogen 13 MG/DL Creatinine 0.98 MG/DL Random Glucose 111 MG/DL Total Protein 7.3 GM/DL Albumin 4.0 GM/DL Calcium Level 9.2 MG/DL Alkaline Phosphatase 105 U/L Aspartate Amino Transf (AST/SGOT) 16 U/L Alanine Aminotransferase (ALT/SGPT) 18 U/L Total Bilirubin 0.8 MG/DL Sodium Level 138 MEQ/L Potassium Level 4.1 MEQ/L Chloride Level 103 MEQ/L Carbon Dioxide Level 27.1 MEQ/L Anion Gap 8 MEQ/L Estimat Glomerular Filtration Rate 54 ML/MIN Total Creatine Kinase 70 U/L Troponin I LESS THAN 0.02 NG/ML B-Type Natriuretic Peptide 43 PG/ML Urine Color YELLOW Urine Turbidity CLEAR Urine pH 5.5 Urine Specific [place] GREATER THAN 1.050 Urine Protein 30 mg/dL Urine Glucose (UA) NEG mg/dL Urine Ketones NEG mg/dL Urine Occult Blood NEG Urine Nitrite NEG Urine Bilirubin NEG Urine Urobilinogen LESS THAN 2.0 MG/DL Urine Leukocyte Esterase NEG Urine RBC 1 /hpf Urine WBC 2 /hpf Urine Squamous Epithelial Cells 1 /hpf Urine Mucus FEW /lpf Microscopic Urinalysis Comment CULT NOT INDICATED MDM Medical Decision Making Medical Screen Exam Complete: Yes Emergency Medical Condition: Yes Medical Record Reviewed: Yes Interpretation(s) nsr 74, lae, , st depression v3-v6 Differential Diagnosis ich v anemia v dehydration Narrative Course NO MAJOR E/O DEHYDRATION OR ANEMIA,....ELECTROLYTE WERE WNL AND NEG TROPONIN, CT HEAD FOR ICH, CXR NEG FOR PNA/PTX/PLEURAL EFFUSION. I BELIEVE IT PRUDENT DUE TO AGE TO ADMIT FOR OBS Diagnosis Primary Impression: syncope Admitting Information Admitting Physician Requests: Observation Ciro Avendano MD Jun 15, 2017 20:05
--- NOTE | 2017-06-15 20:21 | RADRPT ---
EXAM DATE/TIME: 06/15/2017 19:56 [facility] COMPARISON: CHEST SINGLE AP, July 12, 2016, 17:30. INDICATIONS : Syncope MEDICAL HISTORY : Hypertension. SURGICAL HISTORY : Appendectomy. Cholecystectomy. ENCOUNTER: Initial ACUITY: 1 day PAIN SCORE: 0/10 LOCATION: chest FINDINGS: A single view of the chest demonstrates the lungs to be symmetrically aerated without evidence of mas s, infiltrate or effusion. The cardiomediastinal contours are unremarkable. Osseous structures are intact. CONCLUSION: Normal examination for a patient of this age. No significant change has occurred. Christiano Drew MD on June 15, 2017 at 20:19 Board Certified Radiologist. This report was verified electronically.
--- NOTE | 2017-06-15 20:24 | RADRPT ---
EXAM DATE/TIME: 06/15/2017 20:17 [facility] COMPARISON: No previous studies available for comparison. INDICATIONS : Cardiac cath. this morning. Syncopal episode with vomiting this evening. RADIATION DOSE: 40.54 CTDIvol (mGy) MEDICAL HISTORY : Cardiovascular disease. Hypertension. Hernia, hiatal.Skin cancer. SURGICAL HISTORY : Tonsillectomy. Cardiac cath. ENCOUNTER: Initial ACUITY: 1 day PAIN SCALE: 0/10 LOCATION: cranial TECHNIQUE: Multiple contiguous axial images were obtained of the head. Using automated exposure control and adj ustment of the mA and/or kV according to patient size, radiation dose was kept as low as reasonably a chievable to obtain optimal diagnostic quality images. DICOM format image data is available electro nically for review and comparison. FINDINGS: CEREBRUM: The ventricles are normal for age. No evidence of midline shift, mass lesion, hemorrhage or acute in farction. No extra-axial fluid collections are seen. POSTERIOR FOSSA: The cerebellum and brainstem are intact. The 4th ventricle is midline. The cerebellopontine angle i s unremarkable. EXTRACRANIAL: The visualized portion of the orbits is intact. SKULL: The calvaria is intact. No evidence of skull fracture. CONCLUSION: Normal examination for a patient of this age. Christiano Drew MD on June 15, 2017 at 20:22 Board Certified Radiologist. This report was verified electronically.
[2017-06-15 20:27] LABS: AUTOMATED NEUTROPHIL # 7.5 TH/MM3 (1.8-7.7); BASOPHIL # 0.1 TH/MM3 (0-0.2); BASOPHIL % 0.6 % (0.0-2.0); EOSINOPHIL # 0.2 TH/MM3 (0-0.4); EOSINOPHIL % 1.9 % (0.0-4.0); HEMATOCRIT 39.1 % (35.0-46.0); LYMPH % 18.5 % (9.0-44.0); MEAN CELL VOLUME 96.1 FL (80.0-100.0); MEAN CORPUSCULAR HEMOGLOBIN 31.9 PG (27.0-34.0); MEAN CORPUSCULAR HGB CONC 33.2 % (32.0-36.0); MONO % 9.2 % (0.0-8.0); NEUT % 69.8 % (16.0-70.0); PLATELET COUNT 184 TH/MM3 (150-450); RED BLOOD COUNT 4.07 MIL/MM3 (4.00-5.30); RED CELL DISTRIBUTION WIDTH 13.3 % (11.6-17.2); WHITE BLOOD COUNT 10.8 TH/MM3 (4.0-11.0)
[2017-06-15 20:30] LABS: HEMO FLAGS AUTO DIFF
[2017-06-15 20:38] LABS: ANION GAP 8 MEQ/L (5-15); AST (GOT) 16 U/L (15-37); BICARBONATE 27.1 MEQ/L (21.0-32.0); BLOOD UREA NITROGEN 13 MG/DL (7-18); CHLORIDE 103 MEQ/L (98-107); GLOMERULAR FILTRATION RATE 54 ML/MIN (>89); POTASSIUM 4.1 MEQ/L (3.5-5.1); SODIUM (NA) 138 MEQ/L (136-145)
[2017-06-15 20:39] LABS: ALT (GPT) 18 U/L (10-53); APTT (PATIENT) 23.4 SEC (24.3-30.1); PROTHROMBIN TIME - PATIENT 10.6 SEC (9.8-11.6)
[2017-06-15 20:43] LABS: ALKALINE PHOSPHATASE 105 U/L (45-117); TOTAL BILIRUBIN ADULT 0.8 MG/DL (0.2-1.0)
[2017-06-15 20:44] LABS: CREATINE KINASE 70 U/L (26-192)
[2017-06-15 21:13] LABS: PLATELET ESTIMATE SMEAR NORMAL (NORMAL); PLATELET MORPHOLOGY NORMAL (NORMAL); SCAN/DIFF AUTO DIFF CONFIRMED
[2017-06-15 22:14] VITALS: BP_SYST 114; BP_SYST 125; BP_SYST 126; BP_DIAS 59; BP_DIAS 61; BP_DIAS 62; RESP 16
[2017-06-15 22:15] VITALS: BP 114/58; PULSE 71; RESP 18; O2SAT 98
[2017-06-15 23:13] LABS: BLOOD, URINE NEG (NEG); COMMENT (UR) CULT NOT INDICATED; CULTURE IF INDICATED CULT NOT INDICATED; GLUCOSE,URINE NEG (NEG); KETONE, URINE NEG (NEG); MUCUS URINE FEW /lpf (OCC); NITRITE,URINE NEG (NEG); PH, URINE 5.5 (5.0-8.5); SQUAMOUS EPITHELIAL CELL URINE 1 /hpf (0-5); URINE COLOR YELLOW (YELLW/STRAW)
[2017-06-15] MEDS ORDERED: SODIUM CHLORIDE 0.9% FLUSH 10 ML FLUSH IV FLUSH PRN (23:30)
[2017-06-15] MEDS ORDERED: NALOXONE HCL 0.4 MG/ML AMP IV PUSH PRN (23:30)
[2017-06-16 00:39] VITALS: BP 120/63; PULSE 73; RESP 18; TEMP 98.2; O2SAT 98
[2017-06-16 03:18] VITALS: BP 108/56; PULSE 71; RESP 18; TEMP 97.9; O2SAT 96
[2017-06-16 07:36] VITALS: BP 140/65; PULSE 74; RESP 21; TEMP 97.9; O2SAT 95
--- NOTE | 2017-06-16 08:53 | RADRPT ---
EXAM DATE/TIME: 06/16/2017 07:52 [facility] COMPARISON: No previous studies available for comparison. INDICATIONS : Syncope. MEDICAL HISTORY : Hypertension. Glaucoma. Aortic insufficiency. Asthma. Skin cancer. Hiatal hernia. SURGICAL HISTORY : Tonsillectomy. Appendectomy. Cholecystectomy. Meniscus repair. Cardiac catheterization. ENCOUNTER: Initial ACUITY: 1 day PAIN SCORE: 0/10 LOCATION: Bilateral neck PEAK SYSTOLIC VELOCITIES (cm/sec): ICA/CCA RATIO: Right: 1.4 Left: 1.3 ICA: Right: 87 Left: 93 CCA: Right: 64 Left: 74 ECA: Right: 87 Left: 83 VERTEBRAL: Right: 63 antegrade Left: 59 antegrade Elevated flow velocities and ICA/CCA ratios have been found to correlate with increased degrees of vessel stenosis, calculated as percentage of diameter relative to a normal segment of distal ICA/CCA FINDINGS: RIGHT CAROTID: Mild atherosclerotic plaquing at the carotid bifurcation. No significant stenosis is visualized. The waveforms are within normal limits. LEFT CAROTID: Mild atherosclerotic plaquing at the carotid bifurcation. No significant stenosis is visualized. The waveforms are within normal limits. VERTEBRAL ARTERIES: Antegrade flow is seen in both vertebral arteries. MISCELLANEOUS: None. CONCLUSION: 1. There is mild atherosclerotic plaquing at both carotid bifurcations. 2. No focal high grade or hemodynamically significant stenosis. Mario Nesbitt MD on June 16, 2017 at 8:51 Board Certified Radiologist. This report was verified electronically.
[2017-06-16] MEDS ORDERED: SODIUM CHLORIDE 0.9% FLUSH 10 ML FLUSH IV FLUSH SCH (09:00)
[2017-06-16 09:04] LABS: AUTOMATED NEUTROPHIL # 4.8 TH/MM3 (1.8-7.7); BASOPHIL % 0.5 % (0.0-2.0); EOSINOPHIL # 0.2 TH/MM3 (0-0.4); EOSINOPHIL % 2.4 % (0.0-4.0); HEMATOCRIT 39.9 % (35.0-46.0); HEMO FLAGS DIFF FINAL; LYMPH % 25.5 % (9.0-44.0); MEAN CELL VOLUME 97.1 FL (80.0-100.0); MEAN CORPUSCULAR HEMOGLOBIN 32.2 PG (27.0-34.0); MEAN CORPUSCULAR HGB CONC 33.2 % (32.0-36.0); MONO % 8.5 % (0.0-8.0); NEUT % 63.1 % (16.0-70.0); PLATELET COUNT 184 TH/MM3 (150-450); RED BLOOD COUNT 4.11 MIL/MM3 (4.00-5.30); RED CELL DISTRIBUTION WIDTH 13.4 % (11.6-17.2); WHITE BLOOD COUNT 7.7 TH/MM3 (4.0-11.0)
[2017-06-16 09:24] LABS: BICARBONATE 28.4 MEQ/L (21.0-32.0); POTASSIUM 4.5 MEQ/L (3.5-5.1)
[2017-06-16] MEDS ORDERED: ALBUTEROL SULFATE 90 MCG/ACT HFA 18 GM INHALER INH PRN (11:15)
--- NOTE | 2017-06-16 11:41 | HHI.HP ---
HPI Service [facility] Primary Care Physician Violeta Valentine MD Admission Diagnosis SYNCOPE Diagnoses: Chief Complaint: nausea/vomiting, syncope Travel History International Travel<30 Days: No Contact w/Intl Traveler <30 Da: No Traveled to Known Affected Are: No History of Present Illness Written by Tereza Thacker, acting as scribe for Dr. Traylor on 06/16/17 at 11: 35. 87-year-old female with history of CAD, ischemic colitis, aortic insufficiency, asthma, presents with acute onset of nausea/vomiting and syncope. The patient was recently in the hospital yesterday 06/15, underwent cardiac catheterization with Dr. Ruano, which showed moderate three-vessel coronary artery disease, normal LV systolic function, ejection fraction 60%. She was discharged home, had a chicken sandwich for dinner and ate some chocolate cake, then was still sitting at the dinner table around 5:30pm yesterday when she became acutely nauseous and felt faint. The patient's son is at bedside and assists with the history. The family went to grab a bucket however when he returned, the patient' s eyes rolled in the back of her head and she lost consciousness, slumped backwards in her chair. 911 was called. Son reports she was completely out for 3 -4minutes and once she awoke, she was confused for about a minute, then vomited twice and vomited again in the ambulance en route. There was no bladder/bowel incontinence. Emesis described as substantial amount of food, nonbloody. She denies any chest pain or palpitations. She reports chronic constant shortness of breath over many years. Today the patient feels back to normal. Denies any lightheadedness or dizziness. Denies any other medical complaints at this time. Review of Systems Except as stated in HPI: all other systems reviewed are Neg Past Family Social History Past Medical History CAD Ischemic colitis Macular degeneration Glaucoma Asthma Past Surgical History Appendectomy Cholecystectomy Cardiac catheterization Meniscus repair Eye injections Reported Medications Glucosamine (Glucosamine Sulfate) 750 Mg Cap 750 Mg PO BID Ipratropium Nasal 0.06% [place] 2 [place] EACH NARE BID Lisinopril 10 Mg Tab 10 Mg PO DAILY Ranitidine (Ranitidine HCl) 150 Mg Cap 150 Mg PO DAILY Ventolin Hfa 18 GM Inh (Albuterol Sulfate) 90 Mcg/Act Aer 1 Puff INH Q4H PRN Preservision Areds (Multiple Vitamins W/ Minerals) 1 Tab 1 Tab PO DAILY Advair Diskus Inh (Fluticasone-Salmeterol Inh) 500-50 Mcg/Blist Aer 1 Puff INH BID Rinse mouth after use. B Complex (B-Complex Vitamins) 1 Cap 1 Cap PO DAILY Multi-Vitamin Daily (Multiple Vitamin) 1 Tab Tab 1 Tab PO DAILY Calcium 600 with Vitamin D (Calcium Carbonate-Cholecalciferol) 600-400 mg-Unit Tab 1 Tab PO DAILY Xalatan Opth Drops (Latanoprost) 0.005% Drops 1 Drop LEFT EYE HS Aspirin 325 Mg Tab 325 Mg PO DAILY Mirapex (Pramipexole Dihydrochloride) 0.5 Mg Tab 0.5 Mg PO DAILY Zocor (Simvastatin) 20 Mg Tab 20 Mg PO DAILY Adalat CC (Nifedipine) 30 Mg Tab 30 Mg PO DAILY Allergies: Coded Allergies: apple (Unverified Allergy, Severe, Hives, 06/15/17) RAW ONLY/CAN EAT COOKED latex (Unverified Allergy, Severe, Hives, 06/15/17) penicillin G (Unverified Allergy, Severe, Hives, 06/15/17) Active Ordered Medications Current Medications Medications (Trade) Dose Ordered Sig/Rain Route Start Time Stop Time Status Last Admin (NS Flush) 2 ml UNSCH PRN IV FLUSH 06/15/17 23:30 (NS Flush) 2 ml BID IV FLUSH 06/16/17 09:00 06/16/17 09:00 (Narcan Inj) 0.4 mg UNSCH PRN IV PUSH 06/15/17 23:30 (Proair Hfa Inh) 1 puff Q4H PRN INH 06/16/17 11:15 UNV (Procardia Xl) 30 mg DAILY PO 06/16/17 11:15 UNV (Mirapex) 0.5 mg DAILY PO 06/17/17 09:00 UNV Non-Formulary Medication 1 puff BID INH 06/16/17 21:00 UNV Non-Formulary Medication 2 spray BID EACH NARE 06/16/17 21:00 UNV Non-Formulary Medication 150 mg DAILY PO 06/16/17 11:15 UNV Non-Formulary Medication 20 mg DAILY PO 06/17/17 09:00 UNV Family History Father with heart disease, first [place] at age 50, at age 55 Mother with Alzheimer's, age 90 Social History Denies any tobacco use Very occasional alcohol use Denies illicit drug use Physical Exam Vital Signs Vital Signs Date Time Temp Pulse Resp B/P (MAP) Pulse Ox O2 Delivery O2 Flow Rate FiO2 06/16/17 07:36 97.9 74 21 140/65 (90) 95 06/16/17 03:18 97.9 71 18 108/56 (73) 96 06/16/17 00:39 98.2 73 18 120/63 (82) 98 06/15/17 23:56 06/15/17 22:15 71 18 114/58 (76) 98 Room Air 06/15/17 22:14 78 16 125/62 (83) 74 16 126/61 (82) 78 114/59 (77) 06/15/17 20:01 96 06/15/17 19:50 98.3 81 16 138/61 (86) 97 Physical Exam GENERAL: Well-nourished, well-developed pleasant elderly female patient in [facility]. SKIN: Warm and dry. No rash. Right groin cath site clean, no hematoma, dressing CDI. HEAD: Normocephalic. Atraumatic. EYES: Pupils equal and round. No scleral icterus. No injection or drainage. ENT: No nasal bleeding or discharge. Mucous membranes pink and moist. NECK: Supple. Trachea midline. CARDIOVASCULAR: Regular rate and rhythm. S1, S2 noted. No murmur appreciated. RESPIRATORY: No accessory muscle use. Clear to auscultation. Breath sounds equal bilaterally. GASTROINTESTINAL: Abdomen soft, non-tender, nondistended. Normoactive bowel sounds x4. MUSCULOSKELETAL: No obvious deformities. Extremities without clubbing, cyanosis , or edema. 2+ bilateral pedal pulses. NEUROLOGICAL: Awake and alert. No obvious cranial nerve deficits. Motor grossly within normal limits. Normal speech. PSYCHIATRIC: Appropriate mood and affect; insight and judgment normal. Laboratory Laboratory Tests Test 06/15/17 19:50 06/15/17 22:13 06/16/17 08:47 White Blood Count 10.8 7.7 Red Blood Count 4.07 4.11 Hemoglobin 13.0 13.2 Hematocrit 39.1 39.9 Mean Corpuscular Volume 96.1 97.1 Mean Corpuscular Hemoglobin 31.9 32.2 Mean Corpuscular Hemoglobin Concent 33.2 33.2 Red Cell Distribution Width 13.3 13.4 Platelet Count 184 184 Mean Platelet Volume 7.6 7.5 Neutrophils (%) (Auto) 69.8 63.1 Lymphocytes (%) (Auto) 18.5 25.5 Monocytes (%) (Auto) 9.2 8.5 Eosinophils (%) (Auto) 1.9 2.4 Basophils (%) (Auto) 0.6 0.5 Neutrophils # (Auto) 7.5 4.8 Lymphocytes # (Auto) 2.0 2.0 Monocytes # (Auto) 1.0 0.7 Eosinophils # (Auto) 0.2 0.2 Basophils # (Auto) 0.1 0.0 CBC Comment AUTO DIFF DIFF FINAL Differential Comment AUTO DIFF CONFIRMED Platelet Estimate NORMAL Platelet Morphology Comment NORMAL Prothrombin Time 10.6 Prothromb Time International Ratio 1.0 Activated Partial Thromboplast Time 23.4 Blood Urea Nitrogen 13 18 Creatinine 0.98 1.05 Random Glucose 111 100 Total Protein 7.3 Albumin 4.0 Calcium Level 9.2 9.6 Alkaline Phosphatase 105 Aspartate Amino Transf (AST/SGOT) 16 Alanine Aminotransferase (ALT/SGPT) 18 Total Bilirubin 0.8 Sodium Level 138 137 Potassium Level 4.1 4.5 Chloride Level 103 102 Carbon Dioxide Level 27.1 28.4 Anion Gap 8 7 Estimat Glomerular Filtration Rate 54 50 Total Creatine Kinase 70 Troponin I LESS THAN 0.02 B-Type Natriuretic Peptide 43 Urine Color YELLOW Urine Turbidity CLEAR Urine pH 5.5 Urine Specific [place] GREATER THAN 1.050 Urine Protein 30 Urine Glucose (UA) NEG Urine Ketones NEG Urine Occult Blood NEG Urine Nitrite NEG Urine Bilirubin NEG Urine Urobilinogen LESS THAN 2.0 Urine Leukocyte Esterase NEG Urine RBC 1 Urine WBC 2 Urine Squamous Epithelial Cells 1 Urine Mucus FEW Microscopic Urinalysis Comment CULT NOT INDICATED Result Diagram: 06/16/17 0847 06/16/17 0847 Imaging Last Impressions Carotid Artery Ultrasound 06/16/17 0000 Signed Impressions: Service Date/Time: Friday, June 16, 2017 07:52 - CONCLUSION: 1. There is mild atherosclerotic plaquing at both carotid bifurcations. 2. No focal high grade or hemodynamically significant stenosis. Mario Nesbitt MD Head CT 06/15/[id number] Signed Impressions: Service Date/Time: Thursday, June 15, 2017 20:17 - CONCLUSION: Normal examination for a patient of this age. Christiano Drew MD Chest X-Ray 06/15/171953 Signed Impressions: Service Date/Time: Thursday, June 15, 2017 19:56 - CONCLUSION: Normal examination for a patient of this age. No significant change has occurred. Christiano Drew MD Capcassandra VTE Risk Assessment Caprini VTE Risk Assessment: Mod/High Risk (score >= 2) Caprini Risk Assessment Model Point Value = 1 Point Value = 2 Point Value = 3 Point Value = 5 Age 41-60 Minor surgery BMI > 25 kg/m2 Swollen legs Varicose veins or History of unexplained or recurrent spontaneous Oral contraceptives or hormone replacement Sepsis (< 1 month) Serious lung disease, including pneumonia (< 1 month) Abnormal pulmonary function Acute myocardial infarction Congestive heart failure (< 1 month) History of inflammatory bowel disease Medical patient at bed rest Age 61-74 Arthroscopic surgery Major open surgery (> 45 min) Laparoscopic surgery (> 45 min) Malignancy Confined to bed (> 72 hours) Immobilizing plaster cast Central venous access Age >= 75 History of VTE Family history of VTE Factor V Leiden Prothrombin [id number] Lupus anticoagulant Anticardiolipin antibodies Elevated serum homocysteine Heparin-induced thrombocytopenia Other congenital or acquired thrombophilia Stroke (< 1 month) Elective arthroplasty Hip, pelvis, or leg fracture Acute spinal cord injury (< 1 month) Prophylaxis Regimen Total Risk Factor Score Risk Level Prophylaxis Regimen 0-1 Low Early ambulation 2 Moderate Order ONE of the following: *Sequential Compression Device (SCD) *Heparin 5000 units SQ BID 3-4 Higher Order ONE of the following medications: *Heparin 5000 units SQ TID *Enoxaparin/Lovenox 40 mg SQ daily (WT < 150 kg, CrCl > 30 mL/min) *Enoxaparin/Lovenox 30 mg SQ daily (WT < 150 kg, CrCl > 10-29 mL/min) *Enoxaparin/Lovenox 30 mg SQ BID (WT < 150 kg, CrCl > 30 mL/min) AND/OR *Sequential Compression Device (SCD) 5 or more Highest Order ONE of the following medications: *Heparin 5000 units SQ TID (Preferred with Epidurals) *Enoxaparin/Lovenox 40 mg SQ daily (WT < 150 kg, CrCl > 30 mL/min) *Enoxaparin/Lovenox 30 mg SQ daily (WT < 150 kg, CrCl > 10-29 mL/min) *Enoxaparin/Lovenox 30 mg SQ BID (WT < 150 kg, CrCl > 30 mL/min) AND *Sequential Compression Device (SCD) Assessment and Plan Problem List: (1) Syncope ICD Code: R55 - Syncope and collapse Assessment and Plan 87-year-old female with history of CAD, ischemic colitis, aortic insufficiency, asthma, presents with acute onset of nausea/vomiting and syncope. Syncope: suspect combination of receiving sedating medications for recent procedure in combination with poor oral intake throughout the day. However need to rule out cardiogenic etiologies. 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 Ruano, recommends neurology evaluation prior to discharge given hx of TIAs. Neurology consulted. -1515hrs: Patient seen by neurology Dr. Davis, cleared for discharge, instructed to follow up as outpatient with her primary neurologist. No driving until cleared by neurologist. Patient wants to go home, will discharge. CAD/HTN/HLD: s/p recent cardiac catheterization 06/15, showed moderate 3 vessel disease, recommended medical management -continue home meds including aspirin, statin, nifedipine -holding lisinopril s/p recent cath, and -monitor BP, adjust antihypertensives as needed All other medical conditions stable, continue home meds as appropriate. DVT Prophylaxis: teds/SCDs Discussed Condition With Patient, Patient's Son Discharge Planning: Discharge patient to home Condition on discharge: Stable Heart Healthy Diet as tolerated Ad Darlene activity Rx written: no new meds Follow-up with primary care physician, cardiology, and neurology Attending Statement This note was transcribed by manuela Thacker. I, Dr. Johnny Traylor personally performed the history, physical exam, and medical decision making; and confirmed the accuracy of the information in the transcribed note. Authenticated by Dr. Johnny Traylor on 06/16/17 at 16:42. Tereza Thacker PA-C Jun 16, 2017 11:41 am Johnny Traylor MD Jun 16, 2017 4:42 pm
[2017-06-16 12:06] VITALS: BP 124/57; PULSE 75; RESP 20; TEMP 98.2; O2SAT 93
[2017-06-16] MEDS ORDERED: NIFEdipine 30 MG SUSTAINED RELEASE TAB PO SCH (12:30)
[2017-06-16] MEDS ORDERED: PILL SPLITTER OTHER PRN (13:00)
[2017-06-16] MEDS ORDERED: FAMOTIDINE 20 MG TAB PO SCH (13:00)
--- NOTE | 2017-06-16 13:20 | MB ---
cc: TREVON KO M.D. DATE OF CONSULTATION 06/16/2017 REASON FOR CONSULTATION Glo is a very pleasant 87-year lady with a history of moderate three-vessel coronary disease who had a cath yesterday. She also has a history TIA and is followed by Dr. Becerra as an outpatient. She had a witnessed syncopal event by her two sons. The patient reports being nauseated and having vomiting and then lost consciousness for several minutes, however regained full consciousness with full lucidity within a total of three to five minutes according to both of her sons, otherwise denies any other prodromal symptoms like chest pain or shortness of breath. REVIEW OF SYSTEMS A further review of systems is negative for any fever, chills, cough, , bleeding, orthopnea. PAST MEDICAL HISTORY Her past medical history is per history of present illness. She has a history of: 1. 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 2. History of aortic insufficiency 3. Asthma 4. Macular degeneration 5. Cholecystectomy 6. Meniscus repair 7. Appendectomy MEDICATIONS PRIOR TO ADMISSION 1. Lisinopril 10 mg daily 2. Ranitidine 150 mg daily 3. Ventolin 4. Multivitamins 5. Calcium 6. Aspirin 325 7. Zocor 20 8. Adalat 30 mg daily ALLERGIES APPLE, LATEX, PENICILLIN-G MEDICATIONS In the hospital: 1. Nifedipine 30 mg daily extended-release 2. Mirapex PHYSICAL EXAMINATION VITAL SIGNS: Blood pressure 124/57, pulse 75, respiratory rate 20, temperature 98.2. Lowest recorded systolic blood pressure 114, lowest recorded diastolic blood pressure 58. According to her sons, vital signs were stable when EMS arrived. Sats are ranging between 93-98% on room air. GENERAL: She is alert and oriented times three in no acute distress. NECK: Supple. No JVD or bruit. CARDIOVASCULAR: S1 and S2. No murmurs, rubs or gallops. ABDOMEN: Soft, nontender, and nondistended with positive bowel sounds. EXTREMITIES: Without extremity edema. LABS White count 7.7, hemoglobin 13.2, hematocrit 39.9, platelet count 184. Sodium 37, potassium 4.5, chloride 102, bicarb 20.4, BUN 18, creatinine 1.05, glucose 111 on admission. Troponin less Than 0.02. LFTs normal. BNP 43, INR is 1.0. Head CT, normal examination for a patient at this "age". Chest x-ray shows normal examination for a patient of this age. No significant changes occurred. Carotid ultrasound mild atherosclerotic plaquing at both carotid bifurcations. EKG shows normal sinus rhythm at 74 beats per minute. The corrected QT interval is 406 milliseconds. There is a millimeter of ST segment depression in leads V4, V5 and V6, lead 2 and aVF. FINAL DIAGNOSIS 1. Syncope 2. Vasovagal reaction 3. Dehydration 4. Coronary artery disease 5. History of TIAs. 6. Peripheral vascular disease DISCUSSION Her history is very suggestive of intravascular volume depletion from being n.p.o. for cath and also diuretic effect from contrast coupled with a vasovagal reaction. However, she has a history of TIAs. Her EKG is abnormal. Yesterday on her cath, she had moderate three-vessel coronary artery disease with no high-grade focal stenosis in the LAD, however a small diagonal vessel had an ostial 50-60% stenosis. This maybe what is accounting for the EKG changes on the EKG associated with the hypotensive event. Nevertheless, she is currently asymptomatic. Given her history of TIA, I would get a neurology consult prior to discharge and follow up her brain MRI. MD NIKOLAS Limon/ANG /12:56 PM /1:06 PM
--- NOTE | 2017-06-16 14:32 | ECHRPT ---
Indication: syncope CONCLUSIONS Normal left ventricular size. No regional wall motion abnormalities are present. [id number] mitral valve regurgitation. Aortic valve sclerosis is present. Mild aortic valve regurgitation. Aortic valve mean gradient is 7 mmHg. Aortic valve area is 2.4 cm. There is mild tricuspid valve regurgitation. The estimated pulmonary arterial pressure is 42.3 mmHg. BP: 138 / 61 HR: Rhythm: MEASUREMENTS (Male / Female) Normal Values Technical Quality:Good 2D ECHO LV Diastolic Diameter PLAX 3.6 cm 4.2 - 5.9 / 3.9 - 5.3 cm LV Systolic Diameter PLAX 2.8 cm IVS Diastolic Thickness 0.9 cm 0.6 - 1.0 / 0.6 - 0.9 cm LVPW Diastolic Thickness 0.9 cm 0.6 - 1.0 / 0.6 - 0.9 cm LV Relative Wall Thickness 0.5 RV Internal Dim ED PLAX 3.2 cm LVOT Diameter 2.0 cm M-MODE Aortic Root Diameter MM 3.9 cm LA Systolic Diameter MM 2.0 cm LA Ao Ratio MM 0.5 AV Cusp Separation MM 1.4 cm DOPPLER AV Peak Velocity 200.0 cm/s AV Peak Gradient 16.0 mmHg AV Mean Gradient 7.0 mmHg AV Velocity Time Integral 39.6 cm LVOT Peak Velocity 144.0 cm/s LVOT Peak Gradient 8.3 mmHg LVOT Velocity Time Integral 29.7 cm AV Area Cont Eq vti 2.4 cm AV Area Cont Eq pk 2.3 cm Mitral E Point Velocity 59.2 cm/s Mitral A Point Velocity 93.8 cm/s Mitral E to A Ratio 0.6 LV E' Lateral Velocity 6.2 cm/s Mitral E to LV E' Lateral Ratio 9.5 LV E' Septal Velocity 8.8 cm/s Mitral E to LV E' Septal Ratio 6.8 TR Peak Velocity 284.0 cm/s TR Peak Gradient 32.3 mmHg Right Atrial Pressure 10.0 mmHg Pulmonary Artery Systolic Pressu 42.3 mmHg Right Ventricular Systolic Press 42.3 mmHg FINDINGS LEFT VENTRICLE Normal left ventricular size. The left ventricular systolic function is normal with an estimated ejection fraction in the range of 60-65%. No regional wall motion abnormalities are present. RIGHT VENTRICLE Normal right ventricular size and systolic function. LEFT ATRIUM The left atrial size is normal. RIGHT ATRIUM The right atrial size is normal. ATRIAL SEPTUM Normal atrial septal thickness without atrial level shunting by limited color doppler interrogation. AORTA The aortic root and proximal ascending aorta are normal in size on limited imaging. MITRAL VALVE Structurally normal mitral valve. [id number] mitral valve regurgitation. AORTIC VALVE Aortic valve sclerosis is present. Trileaflet aortic valve. Mild aortic valve regurgitation. Aortic valve mean gradient is 7 mmHg. Aortic valve area is 2.4 cm. TRICUSPID VALVE Structurally normal tricuspid valve. There is mild tricuspid valve regurgitation. The estimated pulmonary arterial pressure is 42.3 mmHg. PULMONARY VALVE No pulmonary valve regurgitation or stenosis. VESSELS The inferior vena cava is normal in size. PERICARDIUM No pericardial effusion. Chris Echavarria MD (Electronically Signed) Final Date:16 June 2017 14:31
--- NOTE | 2017-06-16 15:14 | PD.CONS ---
History of Present Illness Service Neurology Consult Requested By cardiology Reason for Consult syncope Primary Care Physician Violeta Valentine MD History of Present Illness 87-year-old female s/p cardiac cath went home and came back after having a syncopal episode. sitting at her dinner, felt very nauseous, lightheaded, spots in her eyes. head went back and eyes rolled back. no convulsive activity. transient confusion afterwards. feels fine now. no previous occurrence glucose 111. 114/[address] brain naicp. carotid u/s no significant stenosis. no box, no trauma. followed by neurology outpatient. Review of Systems Except as stated in HPI: all other systems reviewed are Neg Past Family Social History Past Medical History CAD Ischemic colitis Macular degeneration Glaucoma Asthma Past Surgical History Appendectomy Cholecystectomy Cardiac catheterization Meniscus repair Eye injections Reported Medications Glucosamine (Glucosamine Sulfate) 750 Mg Cap 750 Mg PO BID Ipratropium Nasal 0.06% Emmett 2 Emmett EACH NARE BID Lisinopril 10 Mg Tab 10 Mg PO DAILY Ranitidine (Ranitidine HCl) 150 Mg Cap 150 Mg PO DAILY Ventolin Hfa 18 GM Inh (Albuterol Sulfate) 90 Mcg/Act Aer 1 Puff INH Q4H PRN Preservision Areds (Multiple Vitamins W/ Minerals) 1 Tab 1 Tab PO DAILY Advair Diskus Inh (Fluticasone-Salmeterol Inh) 500-50 Mcg/Blist Aer 1 Puff INH BID Rinse mouth after use. B Complex (B-Complex Vitamins) 1 Cap 1 Cap PO DAILY Multi-Vitamin Daily (Multiple Vitamin) 1 Tab Tab 1 Tab PO DAILY Calcium 600 with Vitamin D (Calcium Carbonate-Cholecalciferol) 600-400 mg-Unit Tab 1 Tab PO DAILY Xalatan Opth Drops (Latanoprost) 0.005% Drops 1 Drop LEFT EYE HS Aspirin 325 Mg Tab 325 Mg PO DAILY Mirapex (Pramipexole Dihydrochloride) 0.5 Mg Tab 0.5 Mg PO DAILY Zocor (Simvastatin) 20 Mg Tab 20 Mg PO DAILY Adalat CC (Nifedipine) 30 Mg Tab 30 Mg PO DAILY Allergies: Coded Allergies: apple (Unverified Allergy, Severe, Hives, 06/15/17) RAW ONLY/CAN EAT COOKED latex (Unverified Allergy, Severe, Hives, 06/15/17) penicillin G (Unverified Allergy, Severe, Hives, 06/15/17) Family History Father with heart disease, first VT at age 50, at age 55 Alzheimer's -mother Social History Denies any tobacco use rare alcohol use Denies illicit drug use Review of Systems All other ROS: ROS reviewed as documented in chart Past Family Social History Allergies: Coded Allergies: apple (Unverified Allergy, Severe, Hives, 06/15/17) RAW ONLY/CAN EAT COOKED latex (Unverified Allergy, Severe, Hives, 06/15/17) penicillin G (Unverified Allergy, Severe, Hives, 06/15/17) Active Ordered Medications Current Medications Medications (Trade) Dose Ordered Sig/Rain Route Start Time Stop Time Status Last Admin (NS Flush) 2 ml UNSCH PRN IV FLUSH 06/15/17 23:30 (NS Flush) 2 ml BID IV FLUSH 06/16/17 09:00 06/16/17 09:00 (Narcan Inj) 0.4 mg UNSCH PRN IV PUSH 06/15/17 23:30 (Ventolin Hfa Inh) 1 puff Q4H PRN INH 06/16/17 11:15 (Procardia Xl) 30 mg DAILY PO 06/16/17 12:30 (Mirapex) 0.5 mg DAILY PO 06/17/17 09:00 Non-Formulary Medication 1 puff BID INH 06/16/17 21:00 UNV Non-Formulary Medication 2 spray BID EACH NARE 06/16/17 21:00 UNV (Pepcid) 10 mg BID PO 06/16/17 13:00 (Pravachol) 40 mg HS PO 06/16/17 21:00 (Pill Splitter) 1 ea UNSCH PRN OTHER 06/16/17 13:00 Exam I&O / VS Vital Signs Date Time Temp Pulse Resp B/P (MAP) Pulse Ox O2 Delivery O2 Flow Rate FiO2 06/16/17 12:06 98.2 75 20 124/57 (79) 93 06/16/17 07:36 97.9 74 21 140/65 (90) 95 06/16/17 03:18 97.9 71 18 108/56 (73) 96 06/16/17 00:39 98.2 73 18 120/63 (82) 98 06/15/17 23:56 06/15/17 22:15 71 18 114/58 (76) 98 Room Air 06/15/17 22:14 78 16 125/62 (83) 74 16 126/61 (82) 78 114/59 (77) 06/15/17 20:01 96 06/15/17 19:50 98.3 81 16 138/61 (86) 97 General: Alert and Oriented, No acute distress Eye: EOMI Neurologic: Alert, Oriented, Normal sensory, Normal motor, No focal defects, CN II-XII intact, Normal DTR's Psychiatric: Cooperative, Appropriate mood & affect Review/Management Diagnosis/Plan: (1) Syncope, vasovagal ICD Codes: R55 - Syncope and collapse Status: Acute Plan: suspect vasovagal sz less likely recs can be dc'd from neurology no driving until seen and cleared by Dr. Gracia who she will be seeing in 1-2 weeks. may need an eeg outpatient d/w pt/son (2) CAD (coronary artery disease) ICD Codes: I25.10 - Atherosclerotic heart disease of cahto coronary artery without angina pectoris Status: Chronic Ta Davis MD Jun 16, 2017 15:14
--- NOTE | 2017-06-16 16:51 | HHI.DCPOC ---
Discharge Care Plan Diagnosis: (1) Syncope, vasovagal (2) CAD (coronary artery disease) Goals to Promote Your Health * To prevent worsening of your condition and complications * To maintain your health at the optimal level Directions to Meet Your Goals Take your medications as prescribed Follow your dietary instruction Follow activity as directed Keep your appointments as scheduled Take your immunizations and boosters as scheduled If your symptoms worsen call your PCP, if no PCP go to Urgent Care Center or Emergency Room Smoking is Dangerous to Your Health. Avoid second hand smoke Call the 24-hour hour crisis hotline for domestic abuse at Tereza Thacker PA-C Jun 16, 2017 4:50 pm
--- NOTE | 2017-06-16 19:37 | EKG ---
Date Performed: 06/15/2017 Time Performed: 19:55:57 PTAGE: 87 years EKG: Sinus rhythm POSSIBLE LEFT ATRIAL ENLARGEMENT MODERATE ST DEPRESSION Since previous tracing 06/15/2017, there is improvement in the R forces in V2, ST T changes slightly more prominent. ABNORMAL ECG PREVIOUS TRACING : 06/15/2017 12.34 DOCTOR: Glenroy Kinsey Interpretating Date/Time 06/16/2017 19:36:45
[2017-06-16] MEDS ORDERED: IPRATROPIUM NASAL SCH (21:00)
[2017-06-16] MEDS ORDERED: BUDESONIDE-FORMOTEROL 160/4.5 MCG INHALER INH SCH (21:00)
[2017-06-16] MEDS ORDERED: PRAVASTATIN SOD 40 MG TAB PO SCH (21:00)
[2017-06-17] MEDS ORDERED: PRAMIPEXOLE DIHYDROCHLORIDE 0.25 MG TAB PO SCH (09:00)
== END 2017-06-16 18:09 | disposition home or self-care (01) ==
LOC: NEPE 19:45 → NEDA 23:21 → NEPHCDU 23:54
PROVIDERS: ADMIT Internal Medicine; ATTEND Internal Medicine
DX: R55 Syncope and collapse (principal); R42 Dizziness and giddiness; J45.909 Unspecified asthma, uncomplicated; I35.1 Nonrheumatic aortic (valve) insufficiency; K44.9 Diaphragmatic hernia without obstruction or gangrene; I10 Essential (primary) hypertension; G25.81 Restless legs syndrome; Z79.899 Other long term (current) drug therapy; R11.2 Nausea with vomiting, unspecified; I25.10 Atherosclerotic heart disease of native coronary artery without angina pectoris; Z86.73 Personal history of transient ischemic attack (TIA), and cerebral infarction without residual deficits; R94.31 Abnormal electrocardiogram [ECG] [EKG]; R06.02 Shortness of breath
CPT/HCPCS: 70450; 71010; 80048; 80053; 81001; 82550; 83880; 84484; 85025; 85610; 85730; 93005; 93306; 93880; 97161; 99285; G0378; G8987; G8988

== ENCOUNTER → 2017-11-02 | Outpatient (CLI) | payer MEDICARE, OTHER ==
[~2017-11-02] MED LIST changes: -ALBUAER3 INH; -ASCO500C PO; +ASPI-183 PO; -ASPI325T PO; -BENT20TA PO; -GLUC500C5 PO; +GLUC750C PO; -GUAI1TAB15 PO; +IPRA0.06 EACH NARE; -LEVA500T PO; -LISI-515 PO; +LISI10TA3 PO; -METR-1 PO; -PRESCAP5 PO
[2017-11-02 12:16] LABS: ALT (GPT) 28 U/L (10-53); AST (GOT) 21 U/L (15-37); BLOOD UREA NITROGEN 12 MG/DL (7-18); CALCIUM 9.3 MG/DL (8.5-10.1); CHLORIDE 106 MEQ/L (98-107); CHOLESTEROL 139 MG/DL (120-200); CREATININE 0.88 MG/DL (0.50-1.00); GLOMERULAR FILTRATION RATE 61 ML/MIN (>89); GLUCOSE,FASTING 108 MG/DL (74-99); SODIUM (NA) 138 MEQ/L (136-145)
[2017-11-02 12:19] LABS: ALKALINE PHOSPHATASE 107 U/L (45-117); CHOLESTEROL/ HDL RATIO 1.93 RATIO; HDL CHOLESTEROL 71.9 MG/DL (40.0-60.0); LDL CHOLESTEROL 54 MG/DL (0-99); TOTAL BILIRUBIN ADULT 0.4 MG/DL (0.2-1.0); TOTAL PROTEIN 7.5 GM/DL (6.4-8.2); TRIGLYCERIDES 67 MG/DL (42-150)
[2017-11-02 16:43] LABS: HEMOGLOBIN A1C 5.9 % (4.3-6.0)
== END ==
LOC: PLAB 06:54
DX: E78.00 Pure hypercholesterolemia, unspecified (principal); R73.9 Hyperglycemia, unspecified; Z79.899 Other long term (current) drug therapy
CPT/HCPCS: 36415; 80053; 80061; 82550; 83036